=== PATIENT | female | born 1950 | race Two or more races ===

== ENCOUNTER 2018-06-07 16:01 | Inpatient (IN) | payer MEDICARE, OTHER ==
[~2018-06-07] VITALS: Ht 160 cm; Wt 70.3 kg
[2018-06-07] MEDS: CALCIUM CARBONATE (1250) 500 MG TABLET PO SCH (09:00)
[2018-06-07] MEDS: ASPIRIN EC 81 MG TABLET.DR PO SCH (09:00)
--- NOTE | 2018-06-07 16:17 | NUR ---
ABIEL FROM [facility] FOR PSYCHE EVAL DT INCREASE IN AGITATION AND RESTLESSNESS. PATIENT IS AWAKE AND ALERT,. NOT IN DISTRESS. SKIN IS WARM TO TOUCH AND NON DIAPHORETIC. PATIENT IS AFEBRILE. VSS
[2018-06-07 16:41] LABS: BASOPHILS % (AUTO) 0.6 % (0.0-2.0); EOSINOPHILS % (AUTO) 3.6 % (0.0-6.0); HEMATOCRIT 41 % (33-45); HEMOGLOBIN 14.1 g/dL (11.5-14.8); LYMPHOCYTES % (AUTO) 30.7 % (20.0-44.0); MEAN CORPUSCULAR HEMOGLOBIN 30 PG (26.0-33.0); MEAN CORPUSCULAR HGB CONC 34 g/dl (31.0-36.0); MEAN CORPUSCULAR VOLUME 88 fL (82-100); MONOCYTES # (AUTO) 0.5 /CMM (0.1-1.30); MONOCYTES % (AUTO) 7.5 % (2.0-12.0); NEUTROPHILS # (AUTO) 3.7 /CMM (1.8-8.9); NEUTROPHILS % (AUTO) 57.6 % (43.0-81.0); PLATELET COUNT (AUTO) 195 /CMM (150-450); RDW COEFFICIENT OF VARIATION 12.8 (11.5-15.0); RED BLOOD CELL COUNT(AUTO) 4.69 MIL/uL (4.0-5.2); WHITE BLOOD COUNT (AUTO) 6.4 K/uL (4.3-11.0)
[2018-06-07 16:44] LABS: APPEARANCE,URINE Cloudy (CLEAR); BILIRUBIN,URINE Negative (NEGATIVE); BLOOD, URINE Negative Ery/uL (NEGATIVE); COLOR,URINE Yellow (YELLOW); KETONES,URINE Negative (NEGATIVE); LEUKOCYTE ESTERASE ,URINE Trace (NEGATIVE); NITRITE, URINE Positive (NEGATIVE); PH,URINE 6.5 (5.0-8.0); PROTEIN,URINE Negative (NEGATIVE); UGLUCOSE Negative (NEGATIVE); UROBILINOGEN,URINE 0.2 EU/dL (0.2)
[2018-06-07 16:51] LABS: CALCIUM, SERUM 9.5 mg/dL (8.5-10.1); CARBON DIOXIDE 28 mmol/L (21-32); CHLORIDE 106 mmol/L (98-107); CREATININE 0.7 mg/dL (0.6-1.3); GLUCOSE 99 mg/dL (74-106); POTASSIUM 4.1 mmol/L (3.5-5.1); SODIUM SERUM 140 mmol/L (136-145); UREA NITROGEN, BLOOD 11 mg/dL (7-18)
[2018-06-07 16:57] LABS: ALANINE AMINOTRANSFERASE 28 U/L (12-78); ALBUMIN 3.7 g/dL (3.4-5.0); ALCOHOL, BLOOD < 3 mg/dL (0-0); ALKALINE PHOSPHATASE 102 U/L (46-116); ASPARTATE AMINOTRANSFERASE 18 U/L (15-37); BILIRUBIN,DIRECT 0.1 mg/dL (0.0-0.2); BILIRUBIN,TOTAL 0.8 mg/dL (0.2-1.0); TOTAL PROTEIN, SERUM 7.5 g/dL (6.4-8.2)
[2018-06-07] MEDS ORDERED: FAMO-131 PO (17:01)
[2018-06-07] MEDS ORDERED: RISP0.5T20 PO (17:01)
[2018-06-07] MEDS ORDERED: DOCU100C36 PO (17:01)
[2018-06-07] MEDS ORDERED: DIVA125C PO (17:01)
[2018-06-07] MEDS ORDERED: ACET-868 PO (17:01)
[2018-06-07] MEDS ORDERED: ATOR20TA PO (17:01)
[2018-06-07] MEDS ORDERED: BENZ0.5T43 PO (17:01)
[2018-06-07] MEDS ORDERED: ALEN70TA3 PO (17:01)
[2018-06-07] MEDS ORDERED: DONE23TA3 PO (17:01)
[2018-06-07] MEDS ORDERED: CALC500T3 PO (17:01)
[2018-06-07] MEDS ORDERED: ASPI-1152 PO (17:01)
[2018-06-07] MEDS ORDERED: FENO54TA PO (17:01)
[2018-06-07] MEDS ORDERED: ESCI5TAB PO (17:01)
[2018-06-07] MEDS ORDERED: MEMA10TA PO (17:01)
--- NOTE | 2018-06-07 17:04 | NUR ---
CALLED [facility] FOR PSYCH EVAL, ETA 1 HOUR
[2018-06-07 17:11] LABS: BACTERIA,URINE 3+ /HPF (None Seen); RBC,URINE NONE SEEN /HPF (0-2); SQUAMOUS EPITHELIAL CELL,UR Few /HPF (None Seen)
[2018-06-07] MEDS ORDERED: CEPHALEXIN MONOHYDRATE 500 MG CAPSULE PO ONE ×2 (17:30→17:38)
[2018-06-07] MEDS ORDERED: LORAZEPAM INJ 2 MG/ML VIAL IM ONE (18:30)
[2018-06-07] MEDS ORDERED: LORAZEPAM INJ 2 MG/ML VIAL ONE (18:31)
--- NOTE | 2018-06-07 18:34 | NUR ---
GPS [id number]-B FOR PSYCHOSIS NOS, /JOSEPH WYMAN
--- NOTE | 2018-06-07 19:27 | NUR ---
REPORT GIVEN TO RN FOR EULOGIO
--- NOTE | 2018-06-07 19:40 | NUR ---
Admitted a 68 y/o female from [facility], on 5150 hold as GD and DTO, based on hold patient increased confusion, agitation and restlessness. According to the DON of the facility, patient has been increasingly confused, crawling on the floor, removing her clothes, aggressive to staff when redirected, hearing voices, talking to self, seen crawling and moving object on the floor. Poor insight and impaired judgement, unable to manage at the facility. Patient admitting Dx. psychosis and medical diagnosis of dementia, alzheimer's disease, GERD, hyperlipidemia. Patient transported safely via wheelchair of [facility] ER staff. Upon face to face evaluation, patient appeared alert and oriented x 1, confused, anxious, disorganized, restless, cooperative, patient has no sob, no acute distress, breathing even and unlabored, no s/s of pain and discomfort, patient is ambulatory with assistance, patient unable to sign paper works, body check and pictures done, belongings inspected for contraband checking, notified Dr. Chapman and Dr. Mendoza of the admission and med recon. Notified Responsible alliance party Trish Welch (daughter). Kept clean, dry and comfortable. All needs attended and met. Will continue to monitor [id number]
[2018-06-07] MEDS ORDERED: MAGNESIUM HYDROXIDE 30 ML UDC PO PRN (20:00)
[2018-06-07] MEDS ORDERED: MAG HYDROX/AL HYDROX/SIMETH 30 ML UDC PO PRN (20:00)
[2018-06-07] MEDS ORDERED: ACETAMINOPHEN 325 MG TABLET PO PRN ×2 (20:00→22:30)
[2018-06-07 22:27] VITALS: BP 92/57
[2018-06-07] MEDS ORDERED: CALCIUM CARBONATE (1250) 500 MG TABLET PO ONE (23:45)
[2018-06-07] MEDS ORDERED: ASPIRIN EC 81 MG TABLET.DR PO ONE (23:45)
[2018-06-08] MEDS: CEPHALEXIN MONOHYDRATE 500 MG CAPSULE PO SCH ×4 (00:07→18:33)
[2018-06-08] MEDS: LORAZEPAM 0.5 MG TABLET PO PRN ×2 (04:40→21:29)
[2018-06-08 07:51] LABS: ALBUMIN 3.7 g/dL (3.4-5.0); BILIRUBIN,TOTAL 0.9 mg/dL (0.2-1.0); CALCIUM, SERUM 9.1 mg/dL (8.5-10.1); CREATININE 0.8 mg/dL (0.6-1.3); POTASSIUM 3.7 mmol/L (3.5-5.1); TOTAL PROTEIN, SERUM 7.7 g/dL (6.4-8.2)
[2018-06-08 07:52] LABS: BASOPHILS % (AUTO) 0.2 % (0.0-2.0); HEMATOCRIT 42 % (33-45); HEMOGLOBIN 13.6 g/dL (11.5-14.8); LYMPHOCYTES # (AUTO) 1.6 /CMM (0.8-4.8); LYMPHOCYTES % (AUTO) 19.5 % (20.0-44.0); MEAN CORPUSCULAR HEMOGLOBIN 30 PG (26.0-33.0); MEAN CORPUSCULAR HGB CONC 33 g/dl (31.0-36.0); MEAN CORPUSCULAR VOLUME 90 fL (82-100); MONOCYTES # (AUTO) 0.6 /CMM (0.1-1.30); MONOCYTES % (AUTO) 8.1 % (2.0-12.0); NEUTROPHILS # (AUTO) 5.6 /CMM (1.8-8.9); NEUTROPHILS % (AUTO) 70.2 % (43.0-81.0); PLATELET COUNT (AUTO) 209 /CMM (150-450); RDW COEFFICIENT OF VARIATION 13.1 (11.5-15.0); RED BLOOD CELL COUNT(AUTO) 4.61 MIL/uL (4.0-5.2)
[2018-06-08 08:00] VITALS: BP 125/78
[2018-06-08] MEDS: CALCIUM CARBONATE (1250) 500 MG TABLET PO SCH ×2 (09:00→09:31)
[2018-06-08] MEDS: ASPIRIN EC 81 MG TABLET.DR PO SCH ×2 (09:00→09:31)
[2018-06-08] MEDS: DIVALPROEX SODIUM 125 MG CAP.SPRINK PO SCH ×3 (09:30→17:49)
[2018-06-08] MEDS: Fenofibrate 48 MG TABLET PO SCH (09:30)
[2018-06-08] MEDS: FAMOTIDINE (20 MG) 20 MG TABLET PO SCH (09:31)
[2018-06-08] MEDS: DOCUSATE SODIUM 100 MG CAPSULE PO SCH (09:31)
[2018-06-08] MEDS: Z GUARD REMEDY 2 OZ OINT TP SCH (10:30)
[2018-06-08] MEDS ORDERED: Z GUARD REMEDY 2 OZ OINT TP PRN (10:30)
--- NOTE | 2018-06-08 10:31 | NUR ---
WOUND CARE CONSULT: PT PRESENTS WITH INCONTINENCE AND DRY SCAB TO RT ANTERIOR LOWER LEG, PRESENT ON ADMISSION. RECOMMENDATIONS MADE FOR SKIN PROTECTION AND CARE. DISCUSSED WITH NURSING STAFF. CURRENT LETICIA SCORE IS 16. PT HAS SITTER AT BEDSIDE. WILL SEE PRN. LE IN AGREEMENT WITH PLAN OF CARE. Addendum: 06/08/18 at 1032 by MEREDITH PAREKH WNDNU Amended: Links added.
--- NOTE | 2018-06-08 12:21 | NUR ---
JOSE G contacted pts daughter Trish [phone] for collateral information. Trish informed JOSE G that pts daughter Sylvie [phone] was pts DPOA and to contact her for collateral information.
--- NOTE | 2018-06-08 12:23 | NUR ---
SW contacted pts daughter Sylvie [phone] for collateral information and to request DPOA paperwork for pts chart. Sylvie was hostile with SW stating she did not want to provide SW with information regarding pt and questioned why she needed to provide [facility] with a copy of DPOA documentation. SW explained to pts daughter that psychosocial assessments are done to assess pt for SI/HI and visual/auditory hallucinations. SW also mentioned to pts daughter that having family history is important to better facilitate care and discharge. SW also explained that psychosocial assessments serve to help have a better understanding of who pt is. Pts daughter understood and provided SW with minimal information. Pts daughter emailed DPOA paper work to SW and SW placed it in pts chart.
[2018-06-08] MEDS: risperiDONE 1 MG TABLET PO SCH ×2 (12:27→17:50)
[2018-06-08] MEDS: BENZTROPINE MESYLATE (1 MG) 1 MG TABLET PO SCH ×2 (12:27→17:49)
--- NOTE | 2018-06-08 14:05 | NUR ---
INITIAL DISCHARGE PLAN: Per pts daughter/DPOA Sylvie [phone] pt will be returning to [facility] Address: [address], [place] [address] . SW confirmed with Elizabeth practical nurse clinical coordinator from [facility] who stated pt can return to facility once stable for discharge. JOSE G will help form a safe and proper discharge in collaboration with .
[2018-06-08 16:00] VITALS: BP 137/82
[2018-06-08 21:14] VITALS: BP 120/79
[2018-06-08] MEDS: ATORVASTATIN 10 MG TABLET PO SCH (21:28)
--- NOTE | 2018-06-08 21:29 | NUR ---
GPS-RN PATIENT IS ANXIOUS, TRYING TO CRAWL OUT OF BED. VSS. ADMINISTERED ATIVAN 0.5MG PO ORDERED. WILL CONTINUE TO MONITOR [id number] FOR SAFETY AND BEHAVIOR.
[2018-06-09] MEDS: CEPHALEXIN MONOHYDRATE 500 MG CAPSULE PO SCH ×4 (00:16→18:10)
[2018-06-09 08:00] VITALS: BP 114/78
[2018-06-09] MEDS: FAMOTIDINE (20 MG) 20 MG TABLET PO SCH (08:42)
[2018-06-09] MEDS: Fenofibrate 48 MG TABLET PO SCH (08:43)
[2018-06-09] MEDS: DOCUSATE SODIUM 100 MG CAPSULE PO SCH (08:43)
[2018-06-09] MEDS: ASPIRIN EC 81 MG TABLET.DR PO SCH (08:43)
[2018-06-09] MEDS: BENZTROPINE MESYLATE (1 MG) 1 MG TABLET PO SCH ×3 (08:43→17:00)
[2018-06-09] MEDS: DIVALPROEX SODIUM 125 MG CAP.SPRINK PO SCH ×3 (08:43→17:00)
[2018-06-09] MEDS: CALCIUM CARBONATE (1250) 500 MG TABLET PO SCH (08:43)
[2018-06-09] MEDS: risperiDONE 1 MG TABLET PO SCH ×3 (08:43→17:00)
[2018-06-09] MEDS: Z GUARD REMEDY 2 OZ OINT TP SCH (08:44)
[2018-06-09 16:30] VITALS: BP 109/67
[2018-06-09] MEDS: LORAZEPAM 0.5 MG TABLET PO PRN (18:07)
--- NOTE | 2018-06-09 18:10 | NUR ---
RN NOTE:PATIENT MEDICATED WITH ATIVAN 0.5MG FOR ANXIETY ,WILL CONTINUE TO MONITOR FOR ANXIETY .
[2018-06-09 20:21] VITALS: BP 119/68
[2018-06-09] MEDS: ATORVASTATIN 10 MG TABLET PO SCH (20:41)
[2018-06-09] MEDS: TEMAZEPAM 7.5 MG CAPSULE PO PRN (20:41)
[2018-06-10] MEDS: CEPHALEXIN MONOHYDRATE 500 MG CAPSULE PO SCH ×4 (00:10→17:35)
[2018-06-10] MEDS: DIVALPROEX SODIUM 125 MG CAP.SPRINK PO SCH ×3 (08:21→17:35)
[2018-06-10] MEDS: CALCIUM CARBONATE (1250) 500 MG TABLET PO SCH (08:21)
[2018-06-10] MEDS: Fenofibrate 48 MG TABLET PO SCH (08:21)
[2018-06-10] MEDS: FAMOTIDINE (20 MG) 20 MG TABLET PO SCH (08:21)
[2018-06-10] MEDS: ASPIRIN EC 81 MG TABLET.DR PO SCH (08:22)
[2018-06-10] MEDS: BENZTROPINE MESYLATE (1 MG) 1 MG TABLET PO SCH ×3 (08:22→17:35)
[2018-06-10] MEDS: DOCUSATE SODIUM 100 MG CAPSULE PO SCH (08:22)
[2018-06-10] MEDS: risperiDONE 1 MG TABLET PO SCH ×2 (08:22→12:05)
[2018-06-10 09:06] VITALS: BP 123/71
[2018-06-10] MEDS: Z GUARD REMEDY 2 OZ OINT TP SCH (09:06)
[2018-06-10] MEDS: LORAZEPAM 0.5 MG TABLET PO PRN (14:05)
--- NOTE | 2018-06-10 14:10 | NUR ---
GPS/RN-NOTES PATIENT STILL IN THE DAY ROOM, NOTED WITH CRYING AND YELLING,DISROBING.REDIRECTED PATIENT .ATIVAN 0.5MG P.O GIVEN PRN ORDER. WILL CONT. MONITORING FOR SAFETY AND BEHAVIOR.
[2018-06-10 16:00] VITALS: BP 130/69
[2018-06-10 17:11] VITALS: BP 137/75
[2018-06-10] MEDS: risperiDONE 0.25 MG TABLET PO SCH (17:35)
[2018-06-10 20:00] VITALS: BP 113/64
[2018-06-10] MEDS: ATORVASTATIN 10 MG TABLET PO SCH (21:06)
[2018-06-10] MEDS: TEMAZEPAM 7.5 MG CAPSULE PO PRN (23:50)
--- NOTE | 2018-06-10 23:50 | NUR ---
TEMAZEPAM 7.5 MG CAP 1 PO GIECN FOR SLEEP.
[2018-06-11] MEDS: CEPHALEXIN MONOHYDRATE 500 MG CAPSULE PO SCH ×5 (06:00→23:32)
[2018-06-11 08:00] VITALS: BP 118/85
[2018-06-11] MEDS: ASPIRIN EC 81 MG TABLET.DR PO SCH (08:28)
[2018-06-11] MEDS: BENZTROPINE MESYLATE (1 MG) 1 MG TABLET PO SCH ×3 (08:28→16:04)
[2018-06-11] MEDS: DIVALPROEX SODIUM 125 MG CAP.SPRINK PO SCH ×3 (08:28→16:03)
[2018-06-11] MEDS: CALCIUM CARBONATE (1250) 500 MG TABLET PO SCH (08:28)
[2018-06-11] MEDS: DOCUSATE SODIUM 100 MG CAPSULE PO SCH (08:28)
[2018-06-11] MEDS: risperiDONE 0.25 MG TABLET PO SCH ×3 (08:28→16:03)
[2018-06-11] MEDS: Fenofibrate 48 MG TABLET PO SCH (08:28)
[2018-06-11] MEDS: FAMOTIDINE (20 MG) 20 MG TABLET PO SCH (08:29)
[2018-06-11 08:32] LABS: BASOPHILS % (AUTO) 0.6 % (0.0-2.0); EOSINOPHILS % (AUTO) 3.8 % (0.0-6.0); HEMATOCRIT 44 % (33-45); HEMOGLOBIN 14.8 g/dL (11.5-14.8); LYMPHOCYTES # (AUTO) 2.4 /CMM (0.8-4.8); LYMPHOCYTES % (AUTO) 31.8 % (20.0-44.0); MEAN CORPUSCULAR HEMOGLOBIN 30 PG (26.0-33.0); MEAN CORPUSCULAR HGB CONC 34 g/dl (31.0-36.0); MEAN CORPUSCULAR VOLUME 89 fL (82-100); MONOCYTES # (AUTO) 0.7 /CMM (0.1-1.30); MONOCYTES % (AUTO) 8.7 % (2.0-12.0); NEUTROPHILS # (AUTO) 4.2 /CMM (1.8-8.9); NEUTROPHILS % (AUTO) 55.1 % (43.0-81.0); PLATELET COUNT (AUTO) 177 /CMM (150-450); RDW COEFFICIENT OF VARIATION 12.2 (11.5-15.0); RED BLOOD CELL COUNT(AUTO) 4.97 MIL/uL (4.0-5.2); WHITE BLOOD COUNT (AUTO) 7.6 K/uL (4.3-11.0)
[2018-06-11 08:43] LABS: ALBUMIN 3.5 g/dL (3.4-5.0); CALCIUM, SERUM 9.3 mg/dL (8.5-10.1); CREATININE 0.7 mg/dL (0.6-1.3); POTASSIUM 3.8 mmol/L (3.5-5.1); TOTAL PROTEIN, SERUM 7.7 g/dL (6.4-8.2)
[2018-06-11] MEDS: Z GUARD REMEDY 2 OZ OINT TP SCH (09:14)
[2018-06-11] MEDS: LORAZEPAM 0.5 MG TABLET PO PRN (09:32)
--- NOTE | 2018-06-11 09:35 | NUR ---
GPS/RN-NOTES NOTED PATIENT WITH SCREAMING ,YELLING AND CRYING WITH AGGRESSIVE BEHAVIOR HITTING STAFF WITH BOTH HANDS DURING CARE. REDIRECTED PATIENT AND ATIVAN 0.5MG P.O GIVEN PRN ORDER. ON 1:1 MONITORING FOR SAFETY AND BEHAVIOR. MONITORING
[2018-06-11 16:14] VITALS: BP 105/92
[2018-06-11 20:00] VITALS: BP 120/71
[2018-06-11] MEDS: ATORVASTATIN 10 MG TABLET PO SCH (22:19)
[2018-06-11] MEDS: TEMAZEPAM 7.5 MG CAPSULE PO PRN (23:31)
[2018-06-12] MEDS: CEPHALEXIN MONOHYDRATE 500 MG CAPSULE PO SCH ×4 (06:11→23:31)
[2018-06-12] MEDS ORDERED: ALENDRONATE 70 MG TABLET PO SCH (07:30)
[2018-06-12 08:00] VITALS: BP 115/65
[2018-06-12] MEDS: CALCIUM CARBONATE (1250) 500 MG TABLET PO SCH (09:01)
[2018-06-12] MEDS: ASPIRIN EC 81 MG TABLET.DR PO SCH (09:01)
[2018-06-12] MEDS: BENZTROPINE MESYLATE (1 MG) 1 MG TABLET PO SCH ×3 (09:01→18:26)
[2018-06-12] MEDS: DIVALPROEX SODIUM 125 MG CAP.SPRINK PO SCH ×3 (09:01→18:27)
[2018-06-12] MEDS: FAMOTIDINE (20 MG) 20 MG TABLET PO SCH (09:01)
[2018-06-12] MEDS: DOCUSATE SODIUM 100 MG CAPSULE PO SCH (09:02)
[2018-06-12] MEDS: Fenofibrate 48 MG TABLET PO SCH (09:02)
[2018-06-12] MEDS: risperiDONE 0.25 MG TABLET PO SCH ×3 (09:02→18:27)
[2018-06-12] MEDS: Z GUARD REMEDY 2 OZ OINT TP SCH (10:19)
--- NOTE | 2018-06-12 13:30 | NUR ---
dr. perez in to see pt.
[2018-06-12 16:42] VITALS: BP 97/74
--- NOTE | 2018-06-12 18:30 | NUR ---
son in requesting dr. perez call him tomorrow-note left for
[2018-06-12 20:00] VITALS: BP 122/96
[2018-06-12] MEDS: ATORVASTATIN 10 MG TABLET PO SCH (21:41)
[2018-06-12] MEDS: TEMAZEPAM 7.5 MG CAPSULE PO PRN (21:41)
--- NOTE | 2018-06-12 21:43 | NUR ---
Prn Temazepam7.5 mg /po given for insomnia, pt remains awake,w/ episodes of crying then laughing,and attempting to get out of bed. Cont w 1:1 sitter for safety precautions, pt fall risk. Kept bed @ lowest position, bed alarm on. Kept pt clean and dry.
[2018-06-13] MEDS: CEPHALEXIN MONOHYDRATE 500 MG CAPSULE PO SCH ×4 (05:11→21:11)
--- NOTE | 2018-06-13 06:32 | NUR ---
TOTAL HRS OF SLEEP: 7 . NO S/SX OF RESP DISTRESS, REMAINS AFEBRILE. PT WOKE UP 0618 AM, COMPLETED AND JENNIFER AM CARE. DUE MEDS GIVEN JENNIFER. PT WENT BACK TO SLEEP AFTER AM CARE. SAFETY MEASURES MAINTAINED. WILL ENDORSE TO AM ONCOMING NURSE.
[2018-06-13 08:00] VITALS: BP 102/67
[2018-06-13] MEDS: DIVALPROEX SODIUM 125 MG CAP.SPRINK PO SCH ×3 (09:07→17:37)
[2018-06-13] MEDS: risperiDONE 0.25 MG TABLET PO SCH ×3 (09:09→17:38)
[2018-06-13] MEDS: LORAZEPAM 0.5 MG TABLET PO PRN ×2 (09:09→15:52)
[2018-06-13] MEDS: ASPIRIN EC 81 MG TABLET.DR PO SCH (09:09)
[2018-06-13] MEDS: BENZTROPINE MESYLATE (1 MG) 1 MG TABLET PO SCH ×3 (09:09→17:37)
[2018-06-13] MEDS: CALCIUM CARBONATE (1250) 500 MG TABLET PO SCH (09:09)
--- NOTE | 2018-06-13 09:09 | NUR ---
RN NOTES ADMINISTERED ATIVAN 0.5 MG PO PRN FOR PARANOIA, DEMANDED, COMBATIVE, IRRITABLE, DELUSIONAL, VERBALLY ABUSIVE. NOT FOLLOW DIRECTION. V/S TAKEN BP-102/67, P-93, CONTINUED MONITORING.
[2018-06-13] MEDS: FAMOTIDINE (20 MG) 20 MG TABLET PO SCH (09:10)
[2018-06-13] MEDS: Fenofibrate 48 MG TABLET PO SCH (09:10)
[2018-06-13] MEDS: Z GUARD REMEDY 2 OZ OINT TP SCH (09:11)
[2018-06-13] MEDS: DOCUSATE SODIUM 100 MG CAPSULE PO SCH (09:13)
--- NOTE | 2018-06-13 15:52 | NUR ---
RN NOTES ADMINISTERED ATIVAN 0.5 MG PO PRN FOR ANXIETY, PARANOIA, IRRITABLE, V/S TAKEN BP -100/62, P-85, CONTINUED MONITORING.
[2018-06-13 16:00] VITALS: BP 119/81
[2018-06-13 20:11] VITALS: BP 121/68
[2018-06-13] MEDS: ATORVASTATIN 10 MG TABLET PO SCH (21:10)
--- NOTE | 2018-06-13 21:11 | NUR ---
PATIENT RESTING AND ALMOST READY TO SLEEP. CEPHALEXIN 500 MG CAP DUE 12 AM, GIVEN AT THIS TIME.
--- NOTE | 2018-06-13 21:14 | NUR ---
TEMAZEPAM 7.5 MG CAP 1 PO GIVEN.
[2018-06-13] MEDS: TEMAZEPAM 7.5 MG CAPSULE PO PRN (22:02)
[2018-06-14 08:22] LABS: ALBUMIN 3.6 g/dL (3.4-5.0); BASOPHILS % (AUTO) 0.4 % (0.0-2.0); BILIRUBIN,TOTAL 0.7 mg/dL (0.2-1.0); CALCIUM, SERUM 9.2 mg/dL (8.5-10.1); CREATININE 0.9 mg/dL (0.6-1.3); EOSINOPHILS % (AUTO) 3.2 % (0.0-6.0); HEMATOCRIT 43 % (33-45); HEMOGLOBIN 14.9 g/dL (11.5-14.8); LYMPHOCYTES % (AUTO) 26.8 % (20.0-44.0); MEAN CORPUSCULAR HEMOGLOBIN 31 PG (26.0-33.0); MEAN CORPUSCULAR HGB CONC 35 g/dl (31.0-36.0); MEAN CORPUSCULAR VOLUME 88 fL (82-100); MONOCYTES # (AUTO) 0.7 /CMM (0.1-1.30); MONOCYTES % (AUTO) 9.6 % (2.0-12.0); NEUTROPHILS # (AUTO) 4.4 /CMM (1.8-8.9); PLATELET COUNT (AUTO) 179 /CMM (150-450); POTASSIUM 3.9 mmol/L (3.5-5.1); RDW COEFFICIENT OF VARIATION 12.3 (11.5-15.0); RED BLOOD CELL COUNT(AUTO) 4.85 MIL/uL (4.0-5.2); WHITE BLOOD COUNT (AUTO) 7.4 K/uL (4.3-11.0)
[2018-06-14] MEDS: ASPIRIN EC 81 MG TABLET.DR PO SCH (08:57)
[2018-06-14] MEDS: DOCUSATE SODIUM 100 MG CAPSULE PO SCH (08:57)
[2018-06-14] MEDS: FAMOTIDINE (20 MG) 20 MG TABLET PO SCH (08:57)
[2018-06-14] MEDS: CALCIUM CARBONATE (1250) 500 MG TABLET PO SCH (08:57)
[2018-06-14] MEDS: risperiDONE 0.25 MG TABLET PO SCH ×2 (08:57→17:44)
[2018-06-14] MEDS: Fenofibrate 48 MG TABLET PO SCH (08:58)
[2018-06-14] MEDS: DIVALPROEX SODIUM 125 MG CAP.SPRINK PO SCH ×2 (08:58→17:44)
[2018-06-14] MEDS: BENZTROPINE MESYLATE (1 MG) 1 MG TABLET PO SCH ×3 (08:58→17:44)
[2018-06-14] MEDS: Z GUARD REMEDY 2 OZ OINT TP SCH (08:59)
[2018-06-14] MEDS: CEPHALEXIN MONOHYDRATE 500 MG CAPSULE PO SCH ×3 (09:04→17:45)
[2018-06-14 09:05] VITALS: BP 132/75
--- NOTE | 2018-06-14 14:15 | NUR ---
RN NOTES UA/UC COLLECTED CLEAN CATCH, CALLED LAB FOR DEPARTMENT CHAIR.
[2018-06-14 16:00] VITALS: BP 108/58
[2018-06-14 19:07] LABS: APPEARANCE,URINE CLEAR (CLEAR); BILIRUBIN,URINE NEGATIVE (NEGATIVE); BLOOD, URINE NEGATIVE Ery/uL (NEGATIVE); COLOR,URINE YELLOW (YELLOW); KETONES,URINE NEGATIVE (NEGATIVE); LEUKOCYTE ESTERASE ,URINE NEGATIVE (NEGATIVE); NITRITE, URINE NEGATIVE (NEGATIVE); PH,URINE 6.5 (5.0-8.0); PROTEIN,URINE NEGATIVE (NEGATIVE); UGLUCOSE NEGATIVE (NEGATIVE); UROBILINOGEN,URINE 0.2 EU/dL (0.2)
[2018-06-14 19:55] VITALS: BP 131/60
[2018-06-14] MEDS: ATORVASTATIN 10 MG TABLET PO SCH (22:28)
[2018-06-14] MEDS: TEMAZEPAM 7.5 MG CAPSULE PO PRN (22:38)
--- NOTE | 2018-06-14 22:38 | NUR ---
RN NOTES PATIENT NOTED TO STILL BE AWAKE AND HAVING DIFFICULTY TO SLEEP. ADMINISTERED TEMAZEPAM ORDERED. WILL CONTINUE TO MONITOR.
[2018-06-15] MEDS: CEPHALEXIN MONOHYDRATE 500 MG CAPSULE PO SCH ×4 (00:04→12:32)
--- NOTE | 2018-06-15 05:41 | NUR ---
RN NOTES PATIENT REFUSED TO TAKE KEFLEX, EXPLAINED RISKS AND BENEFITS BUT CONTINUES TO REFUSE TO TAKE MEDICATION.
[2018-06-15 08:00] VITALS: BP 151/71
[2018-06-15] MEDS: ASPIRIN EC 81 MG TABLET.DR PO SCH (08:40)
[2018-06-15] MEDS: DIVALPROEX SODIUM 125 MG CAP.SPRINK PO SCH ×3 (08:41→17:51)
[2018-06-15] MEDS: risperiDONE 0.25 MG TABLET PO SCH (08:41)
[2018-06-15] MEDS: CALCIUM CARBONATE (1250) 500 MG TABLET PO SCH (08:42)
[2018-06-15] MEDS: LORAZEPAM 0.5 MG TABLET PO PRN (08:42)
[2018-06-15] MEDS: BENZTROPINE MESYLATE (1 MG) 1 MG TABLET PO SCH ×3 (08:42→17:51)
[2018-06-15] MEDS: FAMOTIDINE (20 MG) 20 MG TABLET PO SCH (08:42)
[2018-06-15] MEDS: Fenofibrate 48 MG TABLET PO SCH (08:42)
[2018-06-15] MEDS: DOCUSATE SODIUM 100 MG CAPSULE PO SCH (08:43)
[2018-06-15] MEDS: Z GUARD REMEDY 2 OZ OINT TP SCH (08:45)
[2018-06-15] MEDS: risperiDONE 1 MG TABLET PO SCH ×2 (12:33→17:51)
--- NOTE | 2018-06-15 15:00 | NUR ---
[id number]: NOTIFIED DR. OSKAR CROSS ABOUT RESULTS FOR RIGHT SHOULDER X-RAY. NO FRACTURE OR NO DISLOCATION.
[2018-06-15 16:17] VITALS: BP 113/76
[2018-06-15 20:57] VITALS: BP 113/52
[2018-06-15] MEDS: ATORVASTATIN 10 MG TABLET PO SCH (21:15)
[2018-06-15] MEDS: TEMAZEPAM 7.5 MG CAPSULE PO PRN (22:06)
[2018-06-16 08:00] VITALS: BP 100/56
[2018-06-16] MEDS: CALCIUM CARBONATE (1250) 500 MG TABLET PO SCH (08:40)
[2018-06-16] MEDS: BENZTROPINE MESYLATE (1 MG) 1 MG TABLET PO SCH ×3 (08:40→16:13)
[2018-06-16] MEDS: risperiDONE 1 MG TABLET PO SCH ×3 (08:40→16:12)
[2018-06-16] MEDS: DIVALPROEX SODIUM 125 MG CAP.SPRINK PO SCH ×3 (08:41→16:12)
[2018-06-16] MEDS: ASPIRIN EC 81 MG TABLET.DR PO SCH (08:44)
[2018-06-16] MEDS: FAMOTIDINE (20 MG) 20 MG TABLET PO SCH (08:44)
[2018-06-16] MEDS: Fenofibrate 48 MG TABLET PO SCH (08:45)
[2018-06-16] MEDS: Z GUARD REMEDY 2 OZ OINT TP SCH (08:51)
[2018-06-16] MEDS: DOCUSATE SODIUM 100 MG CAPSULE PO SCH (08:51)
[2018-06-16 16:00] VITALS: BP 101/71
[2018-06-16] MEDS: ATORVASTATIN 10 MG TABLET PO SCH (21:47)
[2018-06-16 21:52] VITALS: BP 105/64
[2018-06-17 08:23] VITALS: BP 107/67
[2018-06-17] MEDS: BENZTROPINE MESYLATE (1 MG) 1 MG TABLET PO SCH (08:28)
[2018-06-17] MEDS: ASPIRIN EC 81 MG TABLET.DR PO SCH (08:28)
[2018-06-17] MEDS: DOCUSATE SODIUM 100 MG CAPSULE PO SCH (08:28)
[2018-06-17] MEDS: Fenofibrate 48 MG TABLET PO SCH (08:28)
[2018-06-17] MEDS: risperiDONE 1 MG TABLET PO SCH (08:29)
[2018-06-17] MEDS: FAMOTIDINE (20 MG) 20 MG TABLET PO SCH (08:29)
[2018-06-17] MEDS: DIVALPROEX SODIUM 125 MG CAP.SPRINK PO SCH (08:29)
[2018-06-17] MEDS: CALCIUM CARBONATE (1250) 500 MG TABLET PO SCH (08:30)
[2018-06-17] MEDS: Z GUARD REMEDY 2 OZ OINT TP SCH (08:33)
--- NOTE | 2018-06-17 12:50 | NUR ---
GPS PRESS MANAGER NOTE: PATIENT DISCHARGE TO [facility] [address] [place] [address].PT IN STABLE CONDITION , NO S/S DISTRESS NOTED PT CALM AND COOPERATIVE, CONFUSED A/OX 1,VSS. EXIT CARE DONE PRINTED PT UNABLE TO SIGN DUE TO CONFUSIONS. SKIN ASSESSED PICTURE PLACED IN THE CHART REPORT GIVEN TO RN IN SNF . DR COELLO ORDER TO DC PT WITH CONTINUE MEDICATIONS, N.P. NOTIFIED
--- NOTE | 2018-06-17 13:49 | NUR ---
DISCHARGE NOTE: Patient was discharged at 12:50pm via [facility] ambulance trip # [phone] to [facility] Address: [address], [place] [address] . Pts daughters Trish [phone] and Sylvie [phone] were notified and agreed with discharge plan. Pts mood was anxious with congruent affect, patient denied visual/auditory hallucinations and denied suicidal/homicidal ideations. Pt will be under care of Psychiatrist: Dr. Randee Chapman [address] [address] [phone] and Mine Technician: Dr. Gideon Garcia Address: [address] [address] . The multidisciplinary exitcare form was done, printed, signed, and given to the patient.
== END 2018-06-17 12:53 | DRG 885 ==
LOC: ER 16:05 → GPS 19:02
PROVIDERS: ADMIT Psychiatry & Neurology Psychosomatic Medicine; ATTEND Psychiatry & Neurology Psychosomatic Medicine
DX: F29 Unspecified psychosis not due to a substance or known physiological condition (principal); F01.50 Vascular dementia, unspecified severity, without behavioral disturbance, psychotic disturbance, mood disturbance, and anxiety; N39.0 Urinary tract infection, site not specified; F32.9 Major depressive disorder, single episode, unspecified; F41.9 Anxiety disorder, unspecified; F20.0 Paranoid schizophrenia; G30.9 Alzheimer's disease, unspecified; K21.9 Gastro-esophageal reflux disease without esophagitis; M81.0 Age-related osteoporosis without current pathological fracture; E78.5 Hyperlipidemia, unspecified; B96.20 Unspecified Escherichia coli [E. coli] as the cause of diseases classified elsewhere; F02.80 Dementia in other diseases classified elsewhere, unspecified severity, without behavioral disturbance, psychotic disturbance, mood disturbance, and anxiety; Z79.82 Long term (current) use of aspirin
CPT/HCPCS: 36415; 73030-TC; 80048-TC; 80053-TC; 80061-TC; 80076-TC; 80164-TC; 80305; 81000-TC; 83735-TC; 85025-TC; 87081-TC; 87086-TC; 87186-TC; 97110-TC; 97116-TC; 97530-TC; A4606; G0480; J2060; Z7610